=== PATIENT | male | born 1940 | race Caucasian/White ===

== ENCOUNTER 2023-02-17 07:19 | Day surgery (SDC) | payer MEDICARE ==
[~2023-02-17] VITALS: Ht 188 cm; Wt 79.6 kg
[~2023-02-17 07:19] MED LIST: HYDACE10B PO
--- NOTE | 2023-02-17 08:22 | NUR ---
02/17/23 0822 Roseline Saba CALL LIGHT WITHIN REACH. TETRACAINE IN AT 0820 IN THE LEFT EYE AND PLEDGETT IN AT 0822
== END 2023-02-17 10:01 | disposition home or self-care (01) ==
LOC: ORSCSDS 07:19
PROVIDERS: Student in an Organized Health Care Education/Training Program
PROC: 08DK3ZZ Extraction of Left Lens, Percutaneous Approach (ICD-10-PCS; principal; 2023-02-17 09:00)
DX: H25.12 Age-related nuclear cataract, left eye (principal); Z96.1 Presence of intraocular lens; H21.81 Floppy iris syndrome; I10 Essential (primary) hypertension; J44.9 Chronic obstructive pulmonary disease, unspecified; Z87.891 Personal history of nicotine dependence
CPT/HCPCS: J2001; J2250; J3010; J7040; V2632